=== PATIENT | male | born 1960 ===

== ENCOUNTER 2023-08-17 15:44 | Outpatient (CLI) | payer MEDICARE | END 2023-08-17 15:45 | disposition home or self-care (01) | LOC: BICCT 15:44 | PROVIDERS: ATTEND Family Medicine | DX: Z12.2 Encounter for screening for malignant neoplasm of respiratory organs (principal); F17.210 Nicotine dependence, cigarettes, uncomplicated; K76.9 Liver disease, unspecified | CPT/HCPCS: 71271 ==